=== PATIENT | female | born 1985 | race Caucasian/White ===

== ENCOUNTER 2016-06-29 16:34 | Emergency (ER) | payer MEDICAID, OTHER ==
[~2016-06-29] VITALS: Ht 167.6 cm; Wt 63.5 kg
[~2016-06-29 16:34] MED LIST: AMOX500C PO; MACR100C2 PO; MICO4CRE PV
[2016-06-29 16:36] VITALS: BP 130/72; PULSE 106; RESP 20; TEMP 98; O2SAT 96
[2016-06-29] MEDS ORDERED: IBUP800T23 PO ×2 (17:14→17:23)
[2016-06-29] MEDS ORDERED: BACT800T5 PO ×2 (17:14→17:23)
[2016-06-29] MEDS ORDERED: CEPH-460 PO ×2 (17:14→17:23)
--- NOTE | 2016-06-29 17:17 | PD ---
HPI Chief Complaint: Wound/Suture/Staple Re-Check Time Seen by Provider: 17:12 Travel History International Travel<30 days: No Contact w/Intl Traveler<30days: No Traveled to known affect area: No History of Present Illness HPI 31-year-old female presents to the emergency Department with complaint of wrist or to the left side of her foot times one week. It popped and drained fluid about 3-4 days ago. Reports pain to the area 3-4 days also. Was seen in urgent care prior to arrival here and was told that she needed to come to the ER because the blister looked infected. Denies fever or vomiting. Has not taken any medications or tried any treatments to alleviate her symptoms. Has no other medical complaints. Multiple allergies. No other modifying factors or associated signs and symptoms. PFSH Past Medical History Anemia: Yes Bipolar Disorder: Yes Heart Rhythm Problems: Yes Cardiovascular Problems: Yes High Cholesterol: Yes Diminished Hearing: No Endocrine: Yes Gastrointestinal Disorders: No Genitourinary: Yes (KIDNEY AND BLADDER PROBLEMS) Immune Disorder: Yes (PATIENT DID NOT ELABORATE) Implanted Vascular Access Dvce: No Musculoskeletal: Yes Neurologic: Yes (STATES TINGLING OF HANDS) Psychiatric: Yes Reproductive: No Respiratory: Yes (PNEUMONIA BABY) Immunizations Current: Yes Schizophrenia: Yes Thyroid Disease: Yes (STATES TOOK MEDICINE IN PAST) ?: Unknown : 2 Para: 3 Miscarriage: 0 : 0 Past Surgical History Section: Yes Gynecologic Surgery: Yes (C SECTION) Other Surgery: Yes (ENDOSCOPY) Social History Alcohol Use: No Tobacco Use: No Substance Use: No (PT DENIES) Allergies-Medications (Allergen,Severity, Reaction): Coded Allergies: Chickpea (Verified Allergy, Unknown, 06/29/16) Per pt. Codeine (Verified Allergy, Unknown, 06/29/16) Per pt. Diflucan (Verified Allergy, Unknown, 06/29/16) Per pt. Milk (Verified Allergy, Unknown, 06/29/16) Per pt. Pea (Verified Allergy, Unknown, 06/29/16) Per pt. Risperdal (Verified Allergy, Unknown, 06/29/16) Per pt. Tuna (Verified Allergy, Unknown, 06/29/16) Per pt. 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 Humus (Allergy, Unknown, 03/20/15) Per pt. Peanut Butter (Allergy, Unknown, 03/20/15) Per pt. States that she is allergic specifically to [place] Peanut Butter. [place] Citizen Cheese (Allergy, Unknown, 03/20/15) Per pt. Reported Meds & Prescriptions Reported Meds & Active Scripts Active No Active Prescriptions or Reported Medications Review of Systems Except as stated in HPI: all other systems reviewed are Neg Physical Exam Narrative GENERAL: Well-nourished, well-developed female patient, in no acute distress; disheveled; afebrile, nontoxic-appearing SKIN: Warm and dry. Medial aspect of heel area of left foot with approximately 3 cm in diameter dried blister with a mild ring of erythema surrounding; without warmth to touch, without drainage; with tenderness to palpation. Left lower extremity is supple and non-tense with 2+ pedal pulses and sensory intact without erythema or edema. HEAD: Atraumatic. Normocephalic. EYES: Pupils equal and round. No scleral icterus. No injection or drainage. ENT: Mucosa pink and moist. Airway patent. NECK: Trachea midline. CARDIOVASCULAR: Regular rate. RESPIRATORY: No accessory muscle use. GASTROINTESTINAL: Flat. MUSCULOSKELETAL: No obvious deformities. No clubbing. No cyanosis. No edema. NEUROLOGICAL: Awake and alert. Oriented 3. No obvious cranial nerve deficits. Motor grossly within normal limits. Normal speech. PSYCHIATRIC: Appropriate mood and affect; insight and judgment normal. Data Data Last Documented VS Vital Signs Date Time Temp Pulse Resp B/P Pulse Ox O2 Delivery O2 Flow Rate FiO2 06/29/16 16:36 98.0 106 20 130/72 96 Room Air MDM Medical Decision Making Medical Screen Exam Complete: Yes Emergency Medical Condition: Yes Medical Record Reviewed: Yes Differential Diagnosis Infected blister, infected wound, healing blister Narrative Course 31-year-old female with possible infected blister to the left foot. Patient is afebrile and nontoxic-appearing. She is up-to-date on her tetanus vaccination. Left lower extremity supplemented with 2+ pedal pulses and sensory intact without erythema or edema. The blisters without drainage. There is a surrounding area of erythema that may be consistent with possible infection. Patient will be started on antibiotics and recommended for outpatient follow- up. Ibuprofen, Keflex, Bactrim prescribed for home. Patient verbalizes understanding and agreement with treatment plan. Patient is medically cleared and stable for discharge. Discussed reasons to return to the emergency department. Instructed patient to follow up with primary care provider. Patient agrees with treatment plan. The patients vital signs are stable and the patient is stable for outpatient follow-up and treatment. Patient discharged home, stable and in no acute distress. Diagnosis Primary Impression: Infected blister of left foot Qualified Code: S90.822A - Infected blister of left foot, initial encounter Referrals: Primary Care Physician Patient Instructions: Acute Wound Care (ED), Blister (ED), General Instructions Departure Forms: Tests/Procedures, Work Release Enter return to work date: June 30, 2016 Additional Instructions: Ibuprofen or Tylenol as directed as needed for pain and inflammation Antibiotics as prescribed Keep area clean and dry Follow-up with primary care provider Return to the emergency department immediately with worsening of symptoms Med/Other Pt SpecificInfo: Prescription(s) given Scripts Ibuprofen 800 Mg [id number] Mg PO Q6HR PRN (PAIN) #30 TAB Ref 0 Prov:Brianna Frausto 06/29/16 Sulfamethoxazole-Trimethoprim (Bactrim DS)800-160 Mg Tab1 Tab PO BID 10 Days Ref 0 Prov:Brianna Frausto 06/29/16 Cephalexin (Keflex)500 Mg [id number] Mg PO Q6H 10 Days Ref 0 Prov:Brianna Frausto 06/29/16 Disposition: 01 DISCHARGE HOME Condition: Stable Brianna Frausto June 29, 2016 17:17
== END 2016-06-29 17:15 | disposition home or self-care (01) ==
LOC: NEPK 16:34
DX: S90.822A Blister (nonthermal), left foot, initial encounter (principal); X58.XXXA Exposure to other specified factors, initial encounter
CPT/HCPCS: 99283

== ENCOUNTER 2016-07-16 16:01 | Inpatient (IN) | payer OTHER ==
[~2016-07-16] VITALS: Ht 167.6 cm; Wt 60.0 kg
[~2016-07-16 16:01] MED LIST changes: -AMOX500C PO; +BACT800T5 PO; +CEPH-460 PO; +IBUP800T23 PO; -MACR100C2 PO; -MICO4CRE PV
[2016-07-16 16:24] VITALS: BP 132/90; PULSE 110; RESP 20; TEMP 97.6; O2SAT 98
--- NOTE | 2016-07-16 16:33 | PD ---
HPI Chief Complaint: Psychiatric Symptoms Time Seen by Provider: 16:32 Travel History International Travel<30 days: No Contact w/Intl Traveler<30days: No Traveled to known affect area: No History of Present Illness HPI 31-year-old female is brought to emergency department under Rod act for attempting to walk into traffic. The patient states that she was not trying to walk into traffic but was feeling nauseous and was throwing up. States that she has no suicidal or homicidal ideations. Denies any attempts to harm herself. States that she has not been feeling well over the last several days and vomited today. She denies alcohol or drug use. She complains of blisters on her feet for several weeks and thinks that they're infected. She denies fever, chills, chest pain, shortness of breath, abdominal pain, cough or cold symptoms. Denies but is unsure of her last menstrual cycle. No other complaints. PFSH Past Medical History Anemia: Yes Heart Rhythm Problems: Yes Cardiovascular Problems: Yes High Cholesterol: Yes Diminished Hearing: No Endocrine: Yes Gastrointestinal Disorders: No Genitourinary: Yes (KIDNEY AND BLADDER PROBLEMS) Immune Disorder: Yes ( ) Implanted Vascular Access Dvce: No Musculoskeletal: Yes Neurologic: Yes (STATES TINGLING OF HANDS) Psychiatric: Yes Reproductive: No Respiratory: Yes (PNEUMONIA BABY) Immunizations Current: Yes Schizophrenia: Yes Thyroid Disease: Yes (STATES TOOK MEDICINE IN PAST) ?: Not LMP: IRREG : 2 Para: 3 Miscarriage: 0 : 0 Past Surgical History Section: Yes Gynecologic Surgery: Yes (C SECTION) Other Surgery: Yes (ENDOSCOPY) Social History Alcohol Use: No Tobacco Use: No Substance Use: No (PT DENIES) Allergies-Medications (Allergen,Severity, Reaction): Coded Allergies: Chickpea (Verified Allergy, Unknown, 06/29/16) Per pt. Codeine (Verified Allergy, Unknown, 06/29/16) Per pt. Diflucan (Verified Allergy, Unknown, 06/29/16) Per pt. Milk (Verified Allergy, Unknown, 06/29/16) Per pt. Pea (Verified Allergy, Unknown, 06/29/16) Per pt. Risperdal (Verified Allergy, Unknown, 06/29/16) Per pt. Tuna (Verified Allergy, Unknown, 06/29/16) Per pt. 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 Humus (Allergy, Unknown, 03/20/15) Per pt. Peanut Butter (Allergy, Unknown, 03/20/15) Per pt. States that she is allergic specifically to [place] Peanut Butter. [place] Cheese (Allergy, Unknown, 03/20/15) Per pt. Reported Meds & Prescriptions Reported Meds & Active Scripts Active Ibuprofen 800 Mg Tab 800 Mg PO Q6HR PRN Bactrim DS (Sulfamethoxazole-Trimethoprim) 800-160 Mg Tab 1 Tab PO BID 10 Days Keflex (Cephalexin) 500 Mg Cap 500 Mg PO Q6H 10 Days Review of Systems Except as stated in HPI: all other systems reviewed are Neg Physical Exam Narrative GENERAL: Well-nourished and well-developed pleasant patient in no acute distress who is nontoxic appearing. SKIN: Warm and dry. Dry crusting skin noted to lateral aspect of bilateral heels. There is no erythema, warmth, swelling, tenderness, discharge or drainage. HEAD: Normocephalic and atraumatic. EYES: No injection, drainage, or hyphema noted. PERRLA. EOMI. ENT: No nasal drainage noted. Oropharynx is clear. NECK: Supple and the trachea is midline. CARDIOVASCULAR: Regular rate and rhythm. RESPIRATORY: Breath sounds are equal bilaterally with no accessory muscle use, wheezing, rhonchi, or crackles. GASTROINTESTINAL: Abdomen is soft, non-tender, and nondistended. MUSCULOSKELETAL: No obvious deformities, swelling, cyanosis, or ecchymosis is present throughout the upper and lower extremities. Patient has full range of motion without any signs of neurovascular compromise. NEUROLOGICAL: Awake, alert, and oriented. Normal speech and gait. Cranial nerves are grossly intact. Data Data Last Documented VS Vital Signs Date Time Temp Pulse Resp B/P Pulse Ox O2 Delivery O2 Flow Rate FiO2 07/16/16 16:24 97.6 110 20 132/90 98 Orders Complete Blood Count With Diff (07/16/16 16:15) Comprehensive Metabolic Panel (07/16/16 16:15) Psych Screen (07/16/16 16:15) Drug Screen, Random Urine (07/16/16 16:15) Alcohol (Ethanol) (07/16/16 16:15) Lipase (07/16/16 16:31) Beta Hcg (Quant/Titer) (07/16/16 17:50) Labs Laboratory Tests Test 07/16/16 07/16/16 17:03 17:29 White Blood Count 7.0 TH/MM3 Red Blood Count 4.28 MIL/MM3 Hemoglobin 13.1 GM/DL Hematocrit 39.8 % Mean Corpuscular Volume 93.0 FL Mean Corpuscular Hemoglobin 30.6 PG Mean Corpuscular Hemoglobin 33.0 % Concent Red Cell Distribution Width 13.1 % Platelet Count 216 TH/MM3 Mean Platelet Volume 9.9 FL Neutrophils (%) (Auto) 70.3 % Lymphocytes (%) (Auto) 17.8 % Monocytes (%) (Auto) 9.0 % Eosinophils (%) (Auto) 2.3 % Basophils (%) (Auto) 0.6 % Neutrophils # (Auto) 4.9 TH/MM3 Lymphocytes # (Auto) 1.2 TH/MM3 Monocytes # (Auto) 0.6 TH/MM3 Eosinophils # (Auto) 0.2 TH/MM3 Basophils # (Auto) 0.0 TH/MM3 CBC Comment DIFF FINAL Differential Comment Sodium Level 142 MEQ/L Potassium Level 3.6 MEQ/L Chloride Level 110 MEQ/L Carbon Dioxide Level 22.3 MEQ/L Anion Gap 10 MEQ/L Blood Urea Nitrogen 11 MG/DL Creatinine 0.87 MG/DL Estimat Glomerular Filtration 75 ML/MIN Rate Random Glucose 110 MG/DL Calcium Level 8.8 MG/DL Total Bilirubin 0.5 MG/DL Aspartate Amino Transf 15 U/L (AST/SGOT) Alanine Aminotransferase 24 U/L (ALT/SGPT) Alkaline Phosphatase 81 U/L Total Protein 7.3 GM/DL Albumin 3.9 GM/DL Lipase 194 U/L Human Chorionic Gonadotropin, LESS THAN 1 Quant MIU/ML Ethyl Alcohol Level LESS THAN 3 MG/DL Urine Opiates Screen NEG Urine Barbiturates Screen NEG Urine Amphetamines Screen NEG Urine Benzodiazepines Screen NEG Urine Cocaine Screen NEG Urine Cannabinoids Screen NEG MDM Medical Decision Making Medical Screen Exam Complete: Yes Emergency Medical Condition: Yes Differential Diagnosis Differential: Depression versus adjustment reaction versus anxiety versus PTSD versus psychosis NOS versus mood disorder NOS versus substance induced mood disorder versus ODD versus adjustment reaction versus schizophrenia versus bipolar disorder versus schizoaffective Narrative Course Patient presents under a Rod act. Physical examination and vital signs are essentially unremarkable. She has some dry skin on the heels that look like chronic blisters. No sign of acute infection. Psych screen has been ordered. The laboratory results are unremarkable. The patient is medically cleared for psychiatric evaluation and disposition. Diagnosis Primary Impression: Psychiatric disorder Additional Impression: Psychiatric exam requested by Brianna Ramirez July 16, 2016 16:32
[2016-07-16 17:27] LABS: ANION GAP 10 MEQ/L (5-15); AUTOMATED NEUTROPHIL # 4.9 TH/MM3 (1.8-7.7); BASOPHIL % 0.6 % (0.0-2.0); EOSINOPHIL # 0.2 TH/MM3 (0-0.4); EOSINOPHIL % 2.3 % (0.0-4.0); HEMATOCRIT 39.8 % (35.0-46.0); HEMO FLAGS DIFF FINAL; LYMPH % 17.8 % (9.0-44.0); LYMPHOCYTE # 1.2 TH/MM3 (1.0-4.8); MEAN CORPUSCULAR HEMOGLOBIN 30.6 PG (27.0-34.0); NEUT % 70.3 % (16.0-70.0); PLATELET COUNT 216 TH/MM3 (150-450); RED BLOOD COUNT 4.28 MIL/MM3 (4.00-5.30); RED CELL DISTRIBUTION WIDTH 13.1 % (11.6-17.2)
[2016-07-16 17:30] LABS: ALKALINE PHOSPHATASE 81 U/L (45-117); ALT (GPT) 24 U/L (10-53); AST (GOT) 15 U/L (15-37); BICARBONATE 22.3 MEQ/L (21.0-32.0); BLOOD UREA NITROGEN 11 MG/DL (7-18); CHLORIDE 110 MEQ/L (98-107); GLOMERULAR FILTRATION RATE 75 ML/MIN (>89); POTASSIUM 3.6 MEQ/L (3.5-5.1); SODIUM (NA) 142 MEQ/L (136-145); TOTAL BILIRUBIN ADULT 0.5 MG/DL (0.2-1.0)
[2016-07-16 17:46] LABS: AMPHETAMINE, URINE NEG (NEG); BARBITURATES, URINE NEG (NEG); COCAINE, URINE NEG (NEG)
[2016-07-16 18:29] LABS: BETA HCG QUANT LESS THAN 1 MIU/ML (0-5)
[2016-07-16 19:57] VITALS: BP 122/81; PULSE 87; RESP 18; O2SAT 97
[2016-07-16 21:48] VITALS: RESP 18
[2016-07-17 02:05] VITALS: RESP 18
[2016-07-17 06:12] VITALS: BP 124/66; PULSE 81; RESP 19; TEMP 98.6; O2SAT 98
[2016-07-17] MEDS ORDERED: diphenhydrAMINE HCL 50 MG CAP PO PRN (09:30)
[2016-07-17] MEDS ORDERED: BENZTROPINE MESYLATE 1 MG TAB PO PRN (09:30)
[2016-07-17] MEDS ORDERED: BENZTROPINE MESYLATE 2 MG/2 ML VIAL IM PRN (09:30)
[2016-07-17] MEDS ORDERED: ARIPiprazole 5 MG TAB PO SCH (09:30)
[2016-07-17] MEDS ORDERED: MAGNESIUM HYDROXIDE SUSP 30 ML CUP PO PRN (09:30)
[2016-07-17] MEDS ORDERED: ALUMINUM/MAGNESIUM/SIMETH 30 ML CUP PO PRN (09:30)
[2016-07-17] MEDS ORDERED: LORazepam 2 MG/ML VIAL IM PRN (09:30)
[2016-07-17] MEDS ORDERED: LORazepam 1 MG TAB PO PRN (09:30)
--- NOTE | 2016-07-17 09:44 | HHI.HP ---
Provisional Diagnosis Admission Date 07/17/2016 [place] I. 1. Schizophrenia, paranoid type with acute exacerbation [place] II. 1. Mixed personality disorder [place] V. GAF is 35 presently Certification of Person's Competence To Provide Express and Informed Consent I have personally examined Ingrid Rosario , a person being served at [facility] on, July 17, 2016 09:24. Express and informed consent means consent voluntarily given in writing, by a competent person, after sufficient explanation and disclosure of the subject matter involved to enable the person to make a knowing and willful decision without any element of force, fraud, deceit, duress, or other form of constraint or coercion. This person is 18 years of age or older, is not now known to be incompetent to consent to treatment with a guardian advocate, and does not have a health care surrogate or proxy currently making medical treatment decisions. I have found this person to be one of the following: [] Competent to provide express and informed consent, as defined above, for voluntary admission to this facility and is competent to provide express and informed consent for treatment. He/she has the consistent capacity to make well reasoned, willful, and knowing decisions concerning his or her medical or mental health treatment. The person fully and consistently understands the purpose of the admission for examination/placement and is fully capable of personally exercising all rights assured [place] [] Incompetent to provide express and informed consent to voluntary admission, and this is incompetent to provide express and informed consent to treatment. The person must be transferred to involuntary status and a petition for a guardian advocate filed with the Circuit Court. [x] Refusing to provide express and informed consent to voluntary admission but is competent to provide express and informed consent for treatment. The person must be discharged or transferred to involuntary status. Form shall be completed within 24 hours of a person's arrival at the receiving facility and filed in the clinical record of each person: 1. Admitted on a voluntary basis 2. Permitted to provide express and informed consent to his/her own treatment 3. Allowed to transfer from involuntary to voluntary status 4. Prior to permitting a person to consent to his or her own treatment after having been previously found incompetent to consent to treatment. History of Present Illness Capacity: Has Capacity HPI Ms. Rosario is a 31-year-old female with a history of schizophrenia and mixed personality disorder who presents on a Rod act by law enforcement alleging that the patient was walking in the street. When officers engaged patient, [employer] alleges that patient accused officers of following her for weeks. Reviewing the electronic medical record, I note that the patient was admitted here most recently under my care approximately one year ago. Patient seen and examined. Chart reviewed. Case discussed with nursing staff. Patient is noted to be fairly oppositional and requiring frequent redirection per nursing staff. On my examination today, the patient presents as disheveled and visibly dirty. She remains fairly oppositional, although it seems in context that this has a paranoid basis. Thought process is circumstantial, at times tangential. She does present with mixed personality disorder features, including paranoid and cluster B personality traits, although the former may better be explained by her primary psychotic disorder diagnosis. She denies the allegations in the [employer]. She says instead, "I was starting to throw up. It's rosita kind of not too bad. I have [address] It's complicated. I was trying not to throw up. I was walking down the street." She denies walking in the street and denies any SI/HI now. As noted previously , patient does present as fairly paranoid, and accuses someone, perhaps staff but it is not clear, of "messing" with her all night long by turning her light off and on and opening and closing her door. She says that she ran out of her Abilify 1 week ago. The remainder of the psychiatric ROS is negative. Despite repeated attempts, the patient is unwilling to share with us with a contact lens curve grinder to provide collateral. Past psychiatric history: The patient reports that she had been getting psychiatric care in [place] but hasn't seen a psychiatrist in several months. Despite this, she maintains that she continues to take her antipsychotic, Abilify. She denies any interval psychiatric admissions since she was last here. She denies any history of suicide attempts. Review of Systems ROS Limitations: Poor Historian Except as stated in HPI: all other systems reviewed are Neg Past Psych History Psychological trauma history No reported trauma history to me Violence risk - others (6 mos) Lower imminent risk. No homicidal ideation. Patient is somewhat paranoid however. Violence risk - self (6 mos) Indeterminate. Patient does seem fairly disheveled and I am concerned that she is neglecting self-care in her psychotic state. Substance Abuse History Drugs/Alcohol past 12 months Patient denies any abuse of drugs or alcohol. Past Family Social History Coded Allergies: Chickpea (Verified Allergy, Unknown, 06/29/16) Per pt. Codeine (Verified Allergy, Unknown, 06/29/16) Per pt. Diflucan (Verified Allergy, Unknown, 06/29/16) Per pt. Milk (Verified Allergy, Unknown, 06/29/16) Per pt. Pea (Verified Allergy, Unknown, 06/29/16) Per pt. Risperdal (Verified Allergy, Unknown, 06/29/16) Per pt. Tuna (Verified Allergy, Unknown, 06/29/16) Per pt. 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 Humus (Allergy, Unknown, 03/20/15) Per pt. Peanut Butter (Allergy, Unknown, 03/20/15) Per pt. States that she is allergic specifically to [place] Peanut Butter. [place] Cheese (Allergy, Unknown, 03/20/15) Per pt. Past Medical History See electronic medical record Discontinued Scripts Ibuprofen 800 Mg [id number] Mg PO Q6HR PRN (PAIN) #30 TAB Ref 0 Prov:Brianna Frausto MOLD CLAMPER 06/29/16 Sulfamethoxazole-Trimethoprim (Bactrim DS)800-160 Mg Tab1 Tab PO BID 10 Days Ref 0 Prov:Brianna Frausto MOLD CLAMPER 06/29/16 Cephalexin (Keflex)500 Mg Srk270 Mg PO Q6H 10 Days Ref 0 Prov:Brianna Frausto MOLD CLAMPER 06/29/16 Family History Patient denies any family history of mental illness. Social History Patient reports that she had been residing with her boyfriend of 1 year but they have recently broken up. She is now living in a boarding house. She says that she is now her own payee. She says that her cousin is trying to take her children away. She is high school educated. She is presently looking for work. She denies any history of violent crime. No reported access to guns or firearms. Patient's Strengths (min. 2) In a monitored setting. Verbally fluent. Physical Exam Physical examination was completed by ED provider. On my examination today, the patient appears fairly disheveled but in no acute physical distress. She does have thick calluses most prominent on the heels of her feet. No abnormal motor movements noted. Laboratories and vital signs reviewed: Vital Signs Vital Signs Date Time Temp Pulse Resp B/P Pulse Ox O2 Delivery O2 Flow Rate FiO2 07/17/16 06:12 98.6 81 19 124/66 98 Room Air Lab Results Item Value Date Time White Blood Count 7.0 TH/MM3 07/16/16 1703 Hemoglobin 13.1 GM/DL 07/16/16 1703 Platelet Count 216 TH/MM3 07/16/16 1703 Sodium Level 142 MEQ/L 07/16/16 1703 Potassium Level 3.6 MEQ/L 07/16/16 1703 Chloride Level 110 MEQ/L H 07/16/16 1703 Carbon Dioxide Level 22.3 MEQ/L 07/16/16 1703 Blood Urea Nitrogen 11 MG/DL 07/16/16 1703 Creatinine 0.87 MG/DL 07/16/16 1703 Aspartate Amino Transf (AST/SGOT) 15 U/L 07/16/16 1703 Alanine Aminotransferase (ALT/SGPT) 24 U/L 07/16/16 1703 Alkaline Phosphatase 81 U/L 07/16/16 1703 Lipase 194 U/L 07/16/16 1703 Human Chorionic Gonadotropin, Quant LESS THAN 1 MIU/ML 07/16/16 1703 Urine Opiates Screen NEG 07/16/16 1729 Urine Barbiturates Screen NEG 07/16/16 1729 Urine Amphetamines Screen NEG 07/16/16 1729 Urine Benzodiazepines Screen NEG 07/16/16 1729 Urine Cocaine Screen NEG 07/16/16 1729 Urine Cannabinoids Screen NEG 07/16/16 1729 Ethyl Alcohol Level LESS THAN 3 MG/DL 07/16/16 1703 Mental Status Examination Patient is in hospital gown. She is disheveled. She is awake and alert and oriented 3. No abnormal motor movements noted. Speech is somewhat vague in its content but otherwise within normal limits for rate, tone and volume. Language and fund of knowledge seem average. Mood is mildly dysphoric and affect is blunted. Thought process circumstantial, at times tangential. No loosening of associations. Paranoia is present. Patient denies audiovisual hallucinations. She denies suicidal or homicidal ideation. Insight and judgment seem poor. Assessment & Plan Problem List: (1) Schizophrenia, paranoid, chronic with acute exacerbation ICD Code: F20.0 (2) Mixed personality disorder ICD Code: F60.89 Assessment & Plan This is a 31-year-old female psychiatric history as detailed above who presents under a Rod act by law enforcement. On my examination today, the patient presents with paranoia and there does appear to be a self-care deficit as she is quite disheveled even though she reports that she resides in a boarding house environment. She also reports recent nonadherence with her prescribed psychotropics, albeit unintentional by her account. Despite our best efforts, the patient has been unwilling to provide a source of reassuring collateral. In the absence of such collateral, I think that the most prudent course of action at this juncture is to admit the patient to the inpatient psychiatric unit for observation and stabilization. Admit inpatient. Patient is presently declining to consent for voluntary admission and so I will initiate a petition for involuntary psychiatric hospitalization and consult for a second opinion. Patient presently retains capacity to consent for medications. Resume Abilify at a dose of 5 mg daily with plans to titrate to effect. Ativan as needed for anxiety, Cogentin as needed for EPS, Benadryl as needed for sleep. Vitals every shift. Counselor to see. Disposition planning. Estimated length of stay: 5-7 days. Discharge Planning Pending psychiatric stabilization. Request HC Surrog/Guard Advoc?: No Horacio Quiroga MD July 17, 2016 09:44
--- NOTE | 2016-07-17 10:59 | PD.CONS ---
Provisional Diagnosis Admission Date July 17, 2016 at 09:21 [place] I. 1. Schizophrenia, paranoid type with acute exacerbation [place] II. 1. Mixed personality disorder [place] V. GAF is 35 presently History of Present Illness Service Psychiatry Consult Requested By Primary Care Physician No Primary Care Physician HPI Ms. Rosario is a 31-year-old female with a history of schizophrenia and mixed personality disorder who presents on a Rod act by law enforcement alleging that the patient was walking in the street. When officers engaged patient, [employer] Act alleges that patient accused officers of following her for weeks. Reviewing the electronic medical record, I note that the patient was admitted here most recently under my care approximately one year ago. Patient seen and examined. Chart reviewed. Case discussed with nursing staff. Patient is noted to be fairly oppositional and requiring frequent redirection per nursing staff. On my examination today, the patient presents as disheveled and visibly dirty. She remains fairly oppositional, although it seems in context that this has a paranoid basis. Thought process is circumstantial, at times tangential. She does present with mixed personality disorder features, including paranoid and cluster B personality traits, although the former may better be explained by her primary psychotic disorder diagnosis. She denies the allegations in the Rod Act. She says instead, "I was starting to throw up. It's ros[place] kind of not too bad. I have [address]. It's complicated. I was trying not to throw up. I was walking down the street." She denies walking in the street and denies any SI/HI now. As noted previously , patient does present as fairly paranoid, and accuses someone, perhaps staff but it is not clear, of "messing" with her all night long by turning her light off and on and opening and closing her door. She says that she ran out of her Abilify 1 week ago. The remainder of the psychiatric ROS is negative. Despite repeated attempts, the patient is unwilling to share with us with a party plan salesperson to provide collateral. Past psychiatric history: The patient reports that she had been getting psychiatric care in [place] but hasn't seen a psychiatrist in several months. Despite this, she maintains that she continues to take her antipsychotic, Abilify. She denies any interval psychiatric admissions since she was last here. She denies any history of suicide attempts. 07/17/16 Above note dictated by Dr. smith reviewed and agreed with Patient is a 31- year-old white female admitted to Dr. smith service under the Rod act. Patient seen by me in [place] with floor staff. Patient delusional intense psychotic showing no insight into her illness. Showing also significant [place] II personality issues. Dr. smith has signed first opinion petition supporting Rod act. I agree. Patient meets criteria for involuntary psychiatric hospitalization under the Rod act. Thus I will cosign second opinion petition supporting Rod act Past Family Social History Coded Allergies: Chickpea (Verified Allergy, Unknown, 06/29/16) Per pt. Codeine (Verified Allergy, Unknown, 06/29/16) Per pt. Diflucan (Verified Allergy, Unknown, 06/29/16) Per pt. Milk (Verified Allergy, Unknown, 06/29/16) Per pt. Pea (Verified Allergy, Unknown, 06/29/16) Per pt. Risperdal (Verified Allergy, Unknown, 06/29/16) Per pt. Tuna (Verified Allergy, Unknown, 06/29/16) Per pt. 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 Humus (Allergy, Unknown, 03/20/15) Per pt. Peanut Butter (Allergy, Unknown, 03/20/15) Per pt. States that she is allergic specifically to [place] Peanut Butter. [place] Cheese (Allergy, Unknown, 03/20/15) Per pt. Discontinued Scripts Ibuprofen 800 Mg [id number] Mg PO Q6HR PRN (PAIN) #30 TAB Ref 0 Prov:Brianna Frausto TRACK AND FIELD COACH 06/29/16 Sulfamethoxazole-Trimethoprim (Bactrim DS)800-160 Mg Tab1 Tab PO BID 10 Days Ref 0 Prov:Brianna Frausto TRACK AND FIELD COACH 06/29/16 Cephalexin (Keflex)500 Mg [id number] Mg PO Q6H 10 Days Ref 0 Prov:Brianna Frausto TRACK AND FIELD COACH 06/29/16 Current Medications Medications (Trade) Dose Ordered Sig/Devin Route Start Time Stop Time Status Last Admin (Ativan) 1 mg Q6H PRN PO 07/17/16 09:30 (Ativan Inj) 1 mg Q6H PRN IM 07/17/16 09:30 (Benadryl) 50 mg HS PRN PO 07/17/16 09:30 (Tylenol) 650 mg Q4H PRN PO 07/17/16 09:30 (Milk Of Magnesia Liq) 30 ml DAILY PRN PO 07/17/16 09:30 (Mag-Al Plus Susp Liq) 30 ml Q6H PRN PO 07/17/16 09:30 (Habitrol 21 Mg Patch.24 Hr) 1 patch DAILY T-DERMAL 07/18/16 09:00 (Cogentin) 1 mg Q12H PRN PO 07/17/16 09:30 (Cogentin Inj) 1 mg Q12H PRN IM 07/17/16 09:30 Miscellaneous Information 1 HS T-DERMAL 07/18/16 21:00 (Abilify) 5 mg DAILY PO 07/17/16 09:30 Patient's Strengths (min. 2) In a monitored setting. Verbally fluent. Physical Exam Vital Signs Vital Signs Date Time Temp Pulse Resp B/P Pulse Ox O2 Delivery O2 Flow Rate FiO2 07/17/16 06:12 98.6 81 19 124/66 98 Room Air Mental Status Examination Speech: Pressured, Rapid, Tangential Orientation: x3 Memory: Unremarkable Thought Process: Loose Association Thought Content: Paranoid Language Fair Fund of Knowledge There Hallucination Type: None (denies) Attention and Concentration: Other (there) Suicidal Ideation: No (denies) Previous Suicide Attempts: No (9) Homicidal Ideation: No (9) Previous Homicide Attempts: No (denies) Insight: Poor Judgment: Poor Affect: Other (increased range and intensity) Mood: Angry, Oppositional, Irritable Motor Activity: Normal gait Assessment & Plan Problem List: (1) Schizophrenia, paranoid, chronic with acute exacerbation ICD Code: F20.0 (2) Mixed personality disorder ICD Code: F60.89 Assessment & Plan Estimated LOS: days Request HC Surrog/Guard Advoc?: No Jimmie Downing MD July 17, 2016 10:59
[2016-07-17] MEDS: ACETAMINOPHEN 325 MG TAB PO PRN (21:28)
[2016-07-18 06:03] VITALS: BP 109/67; PULSE 76; RESP 16; TEMP 98.2; O2SAT 98
[2016-07-18] MEDS: NICOTINE 21 MG/24 HR PATCH T-DERMAL SCH (09:00)
[2016-07-18] MEDS: ACETAMINOPHEN 325 MG TAB PO PRN (09:12)
[2016-07-18 11:22] LABS: ANION GAP 8 MEQ/L (5-15); BICARBONATE 25.9 MEQ/L (21.0-32.0); BLOOD UREA NITROGEN 10 MG/DL (7-18); CHLORIDE 105 MEQ/L (98-107); GLOMERULAR FILTRATION RATE 84 ML/MIN (>89); HDL CHOLESTEROL 73.2 MG/DL (40.0-60.0); LDL CHOLESTEROL 108 MG/DL (0-99); POTASSIUM 4.2 MEQ/L (3.5-5.1); SODIUM (NA) 139 MEQ/L (136-145)
[2016-07-18 11:57] LABS: HEMOGLOBIN A1a 0.9 %; HEMOGLOBIN A1b 1.5 %; HEMOGLOBIN Ao 87.7 %
--- NOTE | 2016-07-18 12:08 | HHI.PYPN ---
Subjective Remarks Patient seen and examined with counselor, nurse and occupational therapist. Chart reviewed. Case discussed with nursing staff reports that the patient has been medication compliant and generally more cooperative today versus yesterday. On my examination today, personality disorder features remain prominent. Patient remains somewhat intrusive, requiring frequent reassurance and redirection, but I do agree with nursing staff that she is somewhat more subdued today. She does appear somewhat internally stimulated and I note her whispering at the samayoa in the hallway. No SI/HI. Discharge focused. Denies side effects from Abilify and is agreeable to titrating this agent but forcefully declines a long-acting injectable. No physical complaints. Review of Systems ROS Limitations: Psychotic, Poor Historian Except as stated in HPI: all other systems reviewed are Neg Objective Alert: Yes [place]: Person, Place, Date Mood: Anxious Affect: Blunted Memory Intact: Comment (Not formally assessed but seems generally intact) Hallucinations: Auditory (Appears internally preoccupied) Delusions: Yes Delusion Type: Paranoid (Some ongoing paranoia) Suicidal: Ideation (No SI) Homicidal: Ideation (No HI) Insight/Judgment Poor Remarks No motoric abnormalities noted. TP perseverative. Grooming and hygiene improved today, and I am told by nurse that the patient did get a shower. Labs Test 07/18/16 10:39 Sodium Level 139 MEQ/L Potassium Level 4.2 MEQ/L Chloride Level 105 MEQ/L Carbon Dioxide Level 25.9 MEQ/L Anion Gap 8 MEQ/L Blood Urea Nitrogen 10 MG/DL Creatinine 0.79 MG/DL Estimat Glomerular Filtration 84 ML/MIN Rate Random Glucose 111 MG/DL Calcium Level 9.2 MG/DL Triglycerides Level 134 MG/DL Cholesterol Level 208 MG/DL LDL Cholesterol 108 MG/DL HDL Cholesterol 73.2 MG/DL Cholesterol/HDL Ratio 2.84 RATIO Labs reviewed. Interval improvement in patient's mildly decreased GFR noted. Vitals/IOs Vital Signs Date Time Temp Pulse Resp B/P Pulse Ox O2 Delivery O2 Flow Rate FiO2 07/18/16 06:03 98.2 76 16 109/67 98 07/17/16 06:12 Room Air Assessment & Plan Problem List: (1) Schizophrenia, paranoid, chronic with acute exacerbation ICD Code: F20.0 (2) Mixed personality disorder ICD Code: F60.89 Assessment & Plan Titrate Abilify to 10mg/day over the weekend to target psychosis. Continue to monitor on inpatient unit. Continue other medications and care as ordered. Justification for Cont. Inpt. Medication changes in process. High risk for decompensation pending psychiatric stabilization. Discharge Planning Monitor over weekend. Possible Thursday discharge if patient continues to improve through the weekend. Request HC Surrog/Guard Advoc?: No Horacio Quiroga MD July 18, 2016 12:08
[2016-07-18 15:30] VITALS: BP 137/113; PULSE 99; RESP 19; TEMP 98.1; O2SAT 97
[2016-07-18 15:45] VITALS: BP 132/67
[2016-07-18] MEDS: REMOVE OLD PATCH T-DERMAL SCH (21:00)
[2016-07-19 06:13] VITALS: BP 118/66; PULSE 88; RESP 17; TEMP 97.6; O2SAT 97
[2016-07-19] MEDS: ARIPiprazole 5 MG TAB PO SCH (09:00)
[2016-07-19] MEDS: NICOTINE 21 MG/24 HR PATCH T-DERMAL SCH (09:00)
--- NOTE | 2016-07-19 14:42 | HHI.PYPN ---
Subjective Remarks Pt seen and discussed with staff. Pt has been less agitated but remains paranoid and delusional. She has been engaging in bizarre behaviors and postures per staff. She is intrusive and staff reports has to be redirected due to inappropriate behavior toward male staff. She denies medication side effects. No SI/HI. Objective Alert: Yes [place]: Person, Place, Date Mood: Anxious Affect: Restricted Memory Intact: Comment (Not formally assessed but seems generally intact) Hallucinations: Auditory (Appears internally preoccupied) Delusions: Yes Delusion Type: Paranoid Suicidal: Ideation (No SI) Homicidal: Ideation (No HI) Insight/Judgment poor Vitals/IOs Vital Signs Date Time Temp Pulse Resp B/P Pulse Ox O2 Delivery O2 Flow Rate FiO2 07/19/16 06:13 97.6 88 17 118/66 97 07/17/16 06:12 Room Air Assessment & Plan Problem List: (1) Schizophrenia, paranoid, chronic with acute exacerbation ICD Code: F20.0 (2) Mixed personality disorder ICD Code: F60.89 Assessment & Plan Continue current tx plan. Estimated LOS: days Justification for Cont. Inpt. impairments in reality construction Request HC Surrog/Guard Advoc?: No Marge Martínez MD July 19, 2016 14:42
[2016-07-19 17:18] VITALS: BP 114/69; PULSE 102; RESP 18; TEMP 98.2; O2SAT 96
[2016-07-19] MEDS: REMOVE OLD PATCH T-DERMAL SCH (21:00)
[2016-07-20 06:40] VITALS: BP 133/86; PULSE 83; RESP 17; TEMP 98.1; O2SAT 97
[2016-07-20] MEDS: NICOTINE 21 MG/24 HR PATCH T-DERMAL SCH (09:00)
[2016-07-20] MEDS: ARIPiprazole 5 MG TAB PO SCH (09:00)
[2016-07-20] MEDS: ACETAMINOPHEN 325 MG TAB PO PRN (09:16)
--- NOTE | 2016-07-20 11:57 | HHI.PYPN ---
Subjective Remarks Pt seen and discussed with staff. She is tolerating Abilify titration without side effects. She has been less paranoid toward nursing and treatment but remains suspicious and guarded. She tells that she staff are twisting her words and using them against her. She has been intrusive with male MHTs on unit. No SI/HI Objective Alert: Yes [place]: Person, Place, Date Mood: Calm Affect: Restricted Memory Intact: Comment (Not formally assessed but seems generally intact) Hallucinations: Auditory (Appears internally preoccupied) Delusions: Yes Delusion Type: Paranoid Suicidal: Ideation (No SI) Homicidal: Ideation (No HI) Insight/Judgment poor Vitals/IOs Vital Signs Date Time Temp Pulse Resp B/P Pulse Ox O2 Delivery O2 Flow Rate FiO2 07/20/16 06:40 98.1 83 17 133/86 97 07/17/16 06:12 Room Air Assessment & Plan Problem List: (1) Schizophrenia, paranoid, chronic with acute exacerbation ICD Code: F20.0 (2) Mixed personality disorder ICD Code: F60.89 Assessment & Plan Continue current tx plan. Estimated LOS: days Justification for Cont. Inpt. impairments in reality testing Request HC Surrog/Guard Advoc?: No Marge Martínez MD July 20, 2016 11:57
[2016-07-20] MEDS: REMOVE OLD PATCH T-DERMAL SCH (21:00)
[2016-07-21] MEDS: NICOTINE 21 MG/24 HR PATCH T-DERMAL SCH (09:00)
[2016-07-21] MEDS: ARIPiprazole 5 MG TAB PO SCH (09:09)
[2016-07-21] MEDS ORDERED: ARIP1TAB5 PO (10:09)
--- NOTE | 2016-07-21 10:09 | HHI.DS ---
Psychiatry Discharge Summary Inpatient Psychiatric care?: Yes Advance Directive: No Mental Health AdvanceDirective: No Health Care Proxy: No Admission Admission Date July 17, 2016 at 09:21 Admission Diagnosis: (1) Schizophrenia, paranoid, chronic with acute exacerbation ICD Code: F20.0 (2) Mixed personality disorder ICD Code: F60.89 Brief History Ms. Rosario is a 31-year-old female with a history of schizophrenia and mixed personality disorder who presents on a Rod act by law enforcement alleging that the patient was walking in the street. When officers engaged patient, [employer] alleges that patient accused officers of following her for weeks. Reviewing the electronic medical record, I note that the patient was admitted here most recently under my care approximately one year ago. Patient seen and examined. Chart reviewed. Case discussed with nursing staff. Patient is noted to be fairly oppositional and requiring frequent redirection per nursing staff. On my examination today, the patient presents as disheveled and visibly dirty. She remains fairly oppositional, although it seems in context that this has a paranoid basis. Thought process is circumstantial, at times tangential. She does present with mixed personality disorder features, including paranoid and cluster B personality traits, although the former may better be explained by her primary psychotic disorder diagnosis. She denies the allegations in the [employer] Act. She says instead, "I was starting to throw up. It's ros[place] kind of not too bad. I have [address] It's complicated. I was trying not to throw up. I was walking down the street." She denies walking in the street and denies any SI/HI now. As noted previously , patient does present as fairly paranoid, and accuses someone, perhaps staff but it is not clear, of "messing" with her all night long by turning her light off and on and opening and closing her door. She says that she ran out of her Abilify 1 week ago. The remainder of the psychiatric ROS is negative. Despite repeated attempts, the patient is unwilling to share with us with a field contact person to provide collateral. Past psychiatric history: The patient reports that she had been getting psychiatric care in [place] but hasn't seen a psychiatrist in several months. Despite this, she maintains that she continues to take her antipsychotic, Abilify. She denies any interval psychiatric admissions since she was last here. She denies any history of suicide attempts. Tobacco Use In Past 30 Days: No Tobacco Past 30 Days Alcohol Use: Never Hospital Course Patient was admitted to a locked, inpatient psychiatric unit. Appropriate precautions were in place throughout patient's hospital stay. Patient was seen and examined daily on the unit by psychiatry and also visited by counselor. Medications were adjusted. Patient tolerated medications well without side effects. Patient had some improvement in her presenting psychiatric symptoms during the course of her hospital stay. There was no evidence of any suicidality or homicidality on the inpatient unit. Personality disorder features, chiefly along cluster B, remained prominent during the course of her hospital stay. Charting indicates that the patient has been sleeping and eating fairly well. On the day of discharge: Patient seen and examined with counselor and nurse. Chart reviewed. Case discussed with nursing staff who reports that the patient has been medication compliant but has been refusing other interventions such as vital signs and weight. On my examination today, the patient provides rationalizations for her refusal of these interventions. She is requesting discharge from the inpatient psychiatric unit today. She denies any suicidal or homicidal ideation, intent or plan. She denies any audiovisual hallucinations although some degree of internal preoccupation is still noted. No issues with mood. Cluster B personality traits persist. No marcial delusions, although she does remain selective regarding with whom she shares information, and I suspect this stems more from her personality disorder than from any sort of psychotic illness. She denies side effects from the Abilify and says that she will continue with oral Abilify but continues to decline long-acting injectable Abilify Maintena. She has no physical complaints. Weighing the acute, chronic, and protective factors and based on the available evidence, I track worker to a reasonable degree of medical certainty that the patient is at low imminent risk of harm to self or others from a mental illness as defined under the Rod act and her level of function is adequate for outpatient care. Consequently, the patient does not meet criteria for ongoing involuntary psychiatric hospitalization. That having been said, I do believe that the patient would stand benefit from further inpatient psychiatric stabilization, and I have strongly recommended that the patient remain on the unit voluntarily for this purpose. She has unfortunately declined and continues to insist on discharge today. Given that the patient does not meet criteria for ongoing involuntary psychiatric hospitalization, and given that she is insisting upon discharge today, I must arrange for her discharge from the inpatient psychiatric unit today. Patient is to follow-up psychiatrically as arranged by counselor. Patient is also to follow-up with primary care. I have reminded the patient regarding the warning signs for need to return to the psychiatric emergency room as part of the general safety plan. Results Blood Pressure 133 / 86 Vital Signs Date Time Temp Pulse Resp B/P Pulse Ox O2 Delivery O2 Flow Rate FiO2 07/20/16 06:40 98.1 83 17 133/86 97 Laboratory Tests Test 07/18/16 10:39 Estimat Glomerular Filtration 84 ML/MIN (>89) Rate Random Glucose 111 MG/DL (74-106) Cholesterol Level 208 MG/DL (120-200) LDL Cholesterol 108 MG/DL (0-99) HDL Cholesterol 73.2 MG/DL (40.0-60.0) Laboratory Results Test 07/18/16 10:39 Hemoglobin A1c 4.6 % (4.3-6.0) Triglycerides Level 134 MG/DL (42-150) Cholesterol Level 208 MG/DL (120-200) LDL Cholesterol 108 MG/DL (0-99) HDL Cholesterol 73.2 MG/DL (40.0-60.0) Summary of Procedures None done Imaging None done Pending results at discharge: No Medications # of Antipsychotic meds at D/C: 1 Approp Antipsych med options 1 - Minimum of three failed multiple trials of monotherapy. 2 - Documented plan to taper to monotherapy due to previous use of multiple meds OR cross-taper in progress at D/C. 3 - Documentation of augmentation of Clozapine. 4 - Justification other than those listed in allowable values 1-3, document here : Discharge Discharge Date: July 21, 2016 Discharge Diagnosis: (1) Schizophrenia, paranoid, chronic with acute exacerbation Diagnosis: Principal (improved versus admission) ICD Code: F20.0 (2) Mixed personality disorder Diagnosis: Secondary (chronic, mixed cluster B chiefly) ICD Code: F60.89 GAF on discharge is 55. Mental Status Exam at Disch Patient is in hospital gown. She remains somewhat disheveled but appears to be maintaining basic hygiene. She is awake and alert and oriented 3. No abnormal motor movements noted. Speech is within normal limits for rate, tone and volume. Language and fund of knowledge seemed average. Mood is fair and affect is full and reactive, if a little bit superficial. Thought process linear. No loosening of associations. No marcial delusional material. Denies audiovisual hallucinations although she does appear a little internally preoccupied still. Denies suicidal or homicidal ideation, intent or plan. Insight and judgment are fair to poor at best. Pt Condition on Discharge: Stable Discharge Disposition: Discharge Home Discharge Instructions Diet Instructions: As Tolerated, No Restrictions Activities you can perform: Weight Bearing as Asim Scheduled Appointment: as per counselor's notes New Medications: Aripiprazole (Abilify) 10 Mg Tab 10 MG PO DAILY Mental Health Days 15 Ref 1 TAB Discharge Time <= 30 minutes Discharge/Advance Care Plan Health Problems: (1) Schizophrenia, paranoid, chronic with acute exacerbation (2) Mixed personality disorder Goals to promote your health * To prevent worsening of your condition and complications * To maintain your health at the optimal level Directions to meet your goals Take your medications as prescribed Follow your dietary instruction Follow activity as directed Keep your appointments as scheduled Take your immunizations and boosters as scheduled If your symptoms worsen call your PCP, if no PCP go to Urgent Care Center or Emergency Room For 15/09 questions related to your inpatient stay or results of tests pending at discharge, please contact Dr. Horacio Quiroga at Smoking is Dangerous to Your Health. Avoid second hand smoking Horacio Quiroga MD July 21, 2016 10:09
== END 2016-07-21 12:50 | disposition home or self-care (01) | DRG 885 ==
LOC: NEDAMB 16:01 → NEDA 07-17 09:21 → H270 07-17 10:10
PROVIDERS: ADMIT Psychiatry & Neurology Psychiatry; ATTEND Psychiatry & Neurology Psychiatry
DX: F20.0 Paranoid schizophrenia (principal); E78.00 Pure hypercholesterolemia, unspecified; F60.89 Other specific personality disorders
CPT/HCPCS: 80048; 80053; 80061; 80307; 83036; 83690; 84702; 85025; 99285

== ENCOUNTER 2016-07-21 22:56 | Emergency (ER) | payer MEDICAID, OTHER ==
[~2016-07-21] VITALS: Ht 165.1 cm; Wt 66.2 kg
[~2016-07-21 22:56] MED LIST changes: +ARIP1TAB5 PO; -BACT800T5 PO; -CEPH-460 PO; -IBUP800T23 PO
[2016-07-21 23:16] VITALS: BP 115/84; PULSE 100; RESP 12; TEMP 97.8; O2SAT 99
[2016-07-22 00:31] VITALS: BP 115/84; PULSE 100; RESP 18; TEMP 97.8; O2SAT 99
--- NOTE | 2016-07-22 00:39 | PD ---
HPI Chief Complaint: Skin Problem Time Seen by Provider: 00:27 Travel History International Travel<30 days: No Contact w/Intl Traveler<30days: No Traveled to known affect area: No History of Present Illness HPI The patient is a 31-year-old female who presents emergency department for Formation over the lateral aspect the left foot. The patient states she was wearing shoes that were rubbing of the lateral aspect of the heels bilaterally and she subsequently developed calluses. The patient states that she was told she has an infection of the callus of the left foot. She denies any fevers or drainage from the affected area, does know some dry skin over the affected area. She denies any significant erythema, swelling, or drainage. Symptoms are mild, exacerbated after wearing shoes that aggravated the affected areas, and there are no currently bleeding factors. PFSH Past Medical History Anemia: Yes Bipolar Disorder: Yes (denies) Heart Rhythm Problems: Yes Cardiovascular Problems: Yes High Cholesterol: Yes Diminished Hearing: No Endocrine: Yes Gastrointestinal Disorders: No Genitourinary: Yes (KIDNEY AND BLADDER PROBLEMS) Immune Disorder: Yes ( ) Implanted Vascular Access Dvce: No Musculoskeletal: Yes Neurologic: Yes (STATES TINGLING OF HANDS) Psychiatric: Yes Reproductive: No Respiratory: Yes (PNEUMONIA BABY) Immunizations Current: Yes Schizophrenia: Yes Thyroid Disease: Yes (STATES TOOK MEDICINE IN PAST) Tetanus Vaccination: Unknown Influenza Vaccination: No ?: Not LMP: unknown : 2 Para: 3 Miscarriage: 0 : 0 Past Surgical History Section: Yes Gynecologic Surgery: Yes (C SECTION) Other Surgery: Yes (ENDOSCOPY) Social History Alcohol Use: No Tobacco Use: No Substance Use: No (PT DENIES) Allergies-Medications (Allergen,Severity, Reaction): Coded Allergies: Milk (Verified Allergy, Severe, 07/22/16) Per pt. Chickpea (Verified Allergy, Unknown, 07/22/16) Per pt. Codeine (Verified Allergy, Unknown, 07/22/16) Per pt. Diflucan (Verified Allergy, Unknown, 07/22/16) Per pt. Pea (Verified Allergy, Unknown, 07/22/16) Per pt. Risperdal (Verified Allergy, Unknown, 07/22/16) Per pt. Tuna (Verified Allergy, Unknown, 07/22/16) Per pt. 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 Humus (Allergy, Unknown, 03/20/15) Per pt. Peanut Butter (Allergy, Unknown, 03/20/15) Per pt. States that she is allergic specifically to [place] Peanut Butter. Faroese Cheese (Allergy, Unknown, 03/20/15) Per pt. Reported Meds & Prescriptions Reported Meds & Active Scripts Active No Active Prescriptions or Reported Medications Review of Systems Except as stated in HPI: all other systems reviewed are Neg General / Constitutional: No: Fever Musculoskeletal: No: Pain Skin: Positive Other (as noted in history present illness) Neurologic: Positive: Paresthesia (history of neuropathy) Physical Exam Narrative GENERAL: Awake, alert, pleasant 31 over who appears her stated age and is in no acute respiratory distress. SKIN: Focused skin assessment warm/dry. HEAD: Atraumatic. Normocephalic. EYES: Pupils equal and round. No scleral icterus. No injection or drainage. ENT: No nasal bleeding or discharge. Mucous membranes pink and moist. NECK: Trachea midline. No JVD. MUSCULOSKELETAL: The patient has callus formation of the lateral left heel with some thickened and roughened skin, however, there is no underlying fluctuance or palpable abscess. No surrounding erythema. Skin is thickened, nontender, and flex easily. NEUROLOGICAL: Awake and alert. No obvious cranial nerve deficits. Motor grossly within normal limits. Normal speech. PSYCHIATRIC: Appropriate mood and affect; insight and judgment normal. Data Data Last Documented VS Vital Signs Date Time Temp Pulse Resp B/P Pulse Ox O2 Delivery O2 Flow Rate FiO2 07/22/16 00:31 97.8 100 18 115/84 99 MDM Medical Decision Making Medical Screen Exam Complete: Yes Emergency Medical Condition: Yes Medical Record Reviewed: Yes Differential Diagnosis Differential diagnosis includes callus, bunion, cellulitis, abscess, infected wound. Narrative Course The patient's physical examination is consistent with a callus from wearing tear from wearing shoes aggravated the lateral aspect of the heel. The patient is advised to the debride area slowly in warm water with a bath stone. She is advised to wear shoes that do not rub over the affected area. Monitor for signs of a secondary infection. Follow-up with her primary physician and/or area forester. Diagnosis Primary Impression: Callus of heel Patient Instructions: General Instructions Additional Instructions: Debridement area with a bath stone on a daily basis. Monitor for signs of infection. Wear shoes that do not rub or aggravate the affected area. Med/Other Pt SpecificInfo: No Change to Meds Scripts No Active Prescriptions or Reported Meds Disposition: 01 DISCHARGE HOME Condition: Stable Law Stock MD July 22, 2016 00:39
[2016-07-22 01:04] VITALS: BP 110/80; TEMP 98
== END 2016-07-22 01:16 | disposition home or self-care (01) ==
LOC: PHED 22:56
DX: L84 Corns and callosities (principal); D64.9 Anemia, unspecified; E78.00 Pure hypercholesterolemia, unspecified; F20.9 Schizophrenia, unspecified; E07.9 Disorder of thyroid, unspecified; F31.9 Bipolar disorder, unspecified
CPT/HCPCS: 99282